=== PATIENT | female | born 1950 | race Caucasian/White ===

== ENCOUNTER 2025-01-05 17:59 | Outpatient (CLI) | payer MEDICARE, SELFPAY ==
--- NOTE | 2025-01-05 18:15 | CRLHL7_ITS ---
For Patients: As a result of the Century Cures Act, medical imaging exams and procedure reports are released immediately into your electronic medical record. You may view this report before your referring provider. If you have questions, please contact your health care provider. INDICATION: Pancreatic cyst. TECHNIQUE: Abdominal MRI with T1 in- and out of phase, T2, diffusion weighted, and progressively delayed post-contrast images. Intravenous gadolinium administered. FINDINGS: No fatty infiltration of the liver. No focal abnormalities identified in the visualized portions of the liver, spleen, adrenal glands, and kidneys. No hydronephrosis. 2.7 x 1.9 x 1.8 cm simple appearing cyst extending off the tail of the pancreas. The pancreas is otherwise unremarkable. No bile duct dilation. Normal size of the main pancreatic duct. No adenopathy. Impression : 1. 2.7 cm simple appearing cyst extending off the tail of the pancreas may represent an intraductal papillary mucinous neoplasm or a mucinous cystic neoplasm. Recommend follow-up MRI in 6 months for documentation of stability. Management of Incidental Pancreatic Cysts: A White Paper of the ACR Incidental Findings Committee. Journal of the [employer]. Volume 14, Number 7, October 2016, pages 911-921. Dictated by Sergio Acosta MD @ 01/07/2025 11:54:08 AM (Electronically Signed)
== END 2025-01-05 18:00 | disposition home or self-care (01) ==
PROVIDERS: Visit Provider Internal Medicine Gastroenterology
DX: K86.2 Cyst of pancreas (principal)
CPT/HCPCS: 74183; A9575

== ENCOUNTER 2025-03-29 20:40 | Outpatient (CLI) | payer MEDICARE, OTHER, SELFPAY ==
--- NOTE | 2025-04-05 11:59 | W.PM.SLEEP ---
Sleep Study Details Details Interpreting Provider: Leonid Date of Sleep Study: 03/29/25 Sleep Study Details: STUDY TYPE:? Hospital-based attended ? BMI:? 25.8 ORDERING PROVIDER:? Justin INDICATION:? Concern for sleep apnea ? SLEEP SUMMARY: 244 minute sleep time RESPIRATORY SUMMARY:? AHI 11.3 per CMS guideline, supine AHI 57.5 no supine REM sleep was seen. PERIODIC LIMB MOVEMENTS OF SLEEP:? Index 1.2 index with arousal 0 CARDIAC:? Awake 64 asleep 63 PACs noted IMPRESSION:? Mild obstructive sleep apnea with severe apnea in the supine position RECOMMENDATION: AutoSet CPAP or in-lab titration. If the patient is in nonsupine sleep for a dental appliance would be a reasonable treatment option as well
== END 2025-03-29 20:41 | disposition home or self-care (01) ==
LOC: SLEEP 20:41
PROVIDERS: PCP Family Medicine; Visit Provider Family Medicine
DX: G47.33 Obstructive sleep apnea (adult) (pediatric) (principal)
CPT/HCPCS: 95810